=== PATIENT | male | born 1945 | race Caucasian/White ===

== ENCOUNTER 2022-06-01 08:18 | Outpatient (CLI) | payer MEDICARE, BC, SELFPAY ==
[2022-06-01 10:03] LABS: Albumin* 3.9 g/dL (3.3-5.0)
[2022-06-01 10:04] LABS: Chloride* 107 mmol/L (96-114); Potassium* 4.6 mmol/L (3.6-5.1); Sodium* 137 mmol/L (135-149)
[2022-06-01 10:06] LABS: Aspartate Amino Transferase* 25 U/L (12-35); Blood Urea Nitrogen* 31 mg/dL (7-30); Carbon Dioxide* 26 mmol/L (20-32); Cholesterol* 183 mg/dL (90-199); Creatinine* 1.1 mg/dL (0.5-1.5); Estimated Glomerular Filt Rate 68 ml/min; Total Protein* 6.4 g/dL (6.0-8.3)
[2022-06-01 10:07] LABS: Alanine Aminotransferase* 24 U/L (4-50); Alkaline Phosphatase* 56 U/L (40-150); Calcium* 9.5 mg/dL (8.4-10.6); Glucose* 92 mg/dL (60-115); HDL Cholesterol* 61 mg/dL (>=40); LDL Cholesterol Calculated 103 mg/dL (<100); Triglycerides* 97 mg/dL (40-149)
[2022-06-01 10:38] LABS: PSA Screen* 0.77 ng/mL (0.10-4.00)
== END 2022-06-01 08:19 | disposition home or self-care (01) ==
PROVIDERS: PCP Family Medicine; Visit Provider Family Medicine
DX: E78.5 Hyperlipidemia, unspecified (principal); Z12.5 Encounter for screening for malignant neoplasm of prostate
CPT/HCPCS: 80053; 80061; 84153

== ENCOUNTER 2023-05-28 07:45 | Outpatient (CLI) | payer MEDICARE, BC, SELFPAY | END 2023-05-28 07:46 | disposition home or self-care (01) | LOC: NFLDREF 05-29 06:59 | PROVIDERS: PCP Family Medicine; Referring Provider Family Medicine; Visit Provider Family Medicine | DX: E78.5 Hyperlipidemia, unspecified (principal); N40.0 Benign prostatic hyperplasia without lower urinary tract symptoms | CPT/HCPCS: 80053; 80061; 84153 ==

== ENCOUNTER 2024-06-01 07:35 | Outpatient (CLI) | payer MEDICARE, BC, SELFPAY ==
--- OUTSIDE RECORDS SUMMARY | 2024-06-01 13:03 | XMS_ITS | Clinical Summary ---
Author Organization [facility] [facility] [employer] [facility] Address [place], [place] [address] Care Team Providers Care Children Counselor Name Role Phone Phylicia [facility] Primary Care Provider [phone] Allergies No known active allergies Medications Medication Sig Dispensed Refills Start Date End Date Status MULTIVITAMIN TAB take 1 tablet by oral route once daily with food 0 Active VITAMIN C 500 MG TAB 1 orally once daily 0 07/05/2009 Activ e simvastatin (ZOCOR) 20 mg tabletIndications:H yperlipidemia LDL goal < 160 Take 1 tablet by mouth once daily in the evening. 93 tablet 3 11/23/2013 Active lisinopriL (PRINIVIL; ZESTRIL) 10 mg tablet lisinopril 10 mg tablet TAKE 1 TABLET BY MOUTH DAILY Active oxybutynin (DITROPAN) 5 mg tabletIndications:N octuria TAKE 1 TABLET(5 MG) BY MOUTH EVERY DAY 90 Tablet 3 12/14/2021 Active Active Problems Problem Noted Date Diagnosed Date Hyperlipidemia LDL goal < 130 12/22/2012 Sciatica 12/22/2012 Actinic keratitis 12/22/2012 Arthritis 12/22/2012 Asymptomatic varicose veins 12/22/2012 Melanoma 04/26/2011 Family history of malignant neoplasm of prostate 07/07/2010 Hypertrophy of prostate with urinary obstruction and other lower urinary tract symptoms (LUTS) 06/09/2007 Other psoriasis 01/10/2007 Personal history of colonic polyps 01/10/2007 Overview: Colonoscopy 07/2010 polyps repeat in 3 years Colonoscopy 08/2013 polyps repeat in 5 years Resolved Problems Problem Noted Date Diagnosed Date Resolved Date Other and unspecified hyperlipidemia 01/10/2007 07/05/2009 Dermatophytosis of nail 01/10/200702/2013 Hyperlipidemia LDL goal < 160 01/10/2007 12/22/2012 Immunizations Name Administration Dates Next Due AMB Influenza, IIV3 (Age >=3 years)(Flu Clinic Only) 09/27/2008 Hepatitis B (Adult) 06/03/2014,01/04/2014,2013 Influenza A (H1N1), Inactiva gladis (Age >=3 Years) 12/07/2009 Influenza, IIV3 (Age >=3 years) 08/19/20 12,07/20/2011,09/04/2010,2008,09/13/2007 MMR 12/01/2013 Pneumococcal Poly,23-Valent (Pneumovax) 06/29/2008 Tdap 05/09/2006 Zoster (Zostavax-ZVL, live) 06/09/2007 Family History Medical History Relation Name Comments Hypertension Brother 2 Cancer-prostate Brother 3 Heart Disease Father heart seizure in his 40s Other Father Parkinson's Cancer-breast Mother Heart Disease Paternal Grandfather Relation Name Status Comments Brother 1 Alive Brother 2 Brother 3 Daughter shen Alive Father (Age 77) Mother (Age 100) Other kay Alive Paternal Grandfather Son jose Alive Social History Tobacco Use Types Packs/Day Years Used Date Smoking Tobacco: Former Cigarettes Q uit: 06/18/2007 Smokeless Tobacco: Never Tobacco Cessation:Counseling Given: Yes Alcohol Use Standard Drinks/Week Comments Yes 0 (1 standard drink = 0.6 oz pur e alcohol) glass wine every other day Sex and Gender Information Value Date Recorded Sex Assigned at Not on file Gender Identity Not on file Sexual Orientation Not on file Obstetrics History Last Filed Vital Signs Vital Sign Reading Time Taken Comments Blood Pressure 127/75 12/11/2021 9:29 AM [employer] Pulse 69 12/11/2021 9:29 AM [employer] Temperature 36.7 ??C (98.1 ??F) 07/16/2013 7:22 PM CD T Respiratory Rate - - Oxygen Saturation 97% 12/11/2021 9:29 AM [employer] Inhaled Oxygen Concentration - - Weight 91 kg (200 lb 9.6 oz) 12/11/2021 9:29 AM [employer] Height 177.8 cm (5' 10) 07/16/2013 7:22 PM CDT Body Mass Index 28.78 07/16/2013 7:22 PM CDT Plan of Treatment Health Maintenance Due Date Last Done Comments Depression screening for age 12+ 1955 BMI (ht and wt on same day) for age 18+ 1961 Zoster (shingles) series for age 50+ (2 of 3) 08/04/2007 06/09/2007 Pneumococcal series for age 65+ (2 of 2 - PCV) 06/29/2009 06/29/2008 Medicare Wellness for age 65+ 12/23/2013 12/22/2012 Tetanus booster 05/09/2016 05/09/2006 COVID-19 vaccine series (2 - 2022-24 season) 2023 08/16/2021 Influenza for age 65+ 07/19/2024 08/19/2012 , 07/20/2011, 09/04/2010, Additional history exists Tdap Completed 05/09/2006 Advance Directives Documents on File Type Date Recorded Patient Director Market Intelligence Expl anation Healthcare Directive 12/04/2007 HEALTH CARE DIRECTIVE, [facility], 12/04/07 Care Teams Children Counselor Relationship [facility]ty [facility] Date [facility] [address] [place] [id number] PCP - General 12/19/17
== END 2024-06-01 07:36 | disposition home or self-care (01) ==
LOC: NFLDREF 13:00
PROVIDERS: PCP Family Medicine; Referring Provider Family Medicine; Visit Provider Family Medicine
DX: E78.5 Hyperlipidemia, unspecified (principal); Z12.5 Encounter for screening for malignant neoplasm of prostate
CPT/HCPCS: 80053; 80061; G0103

== ENCOUNTER 2025-05-25 07:50 | Outpatient (CLI) | payer MEDICARE, BC, SELFPAY | END 2025-05-25 07:51 | disposition home or self-care (01) | LOC: NFLDREF 05-27 07:40 | PROVIDERS: PCP Family Medicine; Referring Provider Family Medicine; Visit Provider Family Medicine | DX: I10 Essential (primary) hypertension (principal); E78.5 Hyperlipidemia, unspecified; Z12.5 Encounter for screening for malignant neoplasm of prostate | CPT/HCPCS: 80053; 80061; G0103 ==